=== PATIENT | female | born 1980 | race Caucasian/White ===

== ENCOUNTER 2017-07-22 09:31 | Outpatient (CLI) | payer OTHER | END 2017-07-22 09:32 | LOC: LAB 09:31 | PROVIDERS: ATTEND Internal Medicine | DX: R53.82 Chronic fatigue, unspecified (principal); K29.70 Gastritis, unspecified, without bleeding; K90.0 Celiac disease | CPT/HCPCS: 36415; 82784; 83516; 84439; 84443; 84481 ==